=== PATIENT | female | born 1970 | race Two or more races ===

== ENCOUNTER 2022-05-09 06:05 | Day surgery (SDC) | payer OTHER ==
[~2022-05-09] VITALS: Ht 157.5 cm; Wt 61.7 kg
[~2022-05-09 06:05] MED LIST: BUSPAR PO; CLEOCIN HCL300 MG PO; LEXAPRO20 MG PO; VALIUM
== END 2022-05-09 15:35 | disposition home or self-care (01) ==
LOC: CIR.AMB 06:05
PROVIDERS: ATTEND Colon & Rectal Surgery
DX: K64.8 Other hemorrhoids (principal); Z20.822 Contact with and (suspected) exposure to COVID-19; I10 Essential (primary) hypertension